=== PATIENT | male | born 2000 ===

== ENCOUNTER 2023-04-25 14:27 | Outpatient (AMB) | payer OTHER, SELFPAY ==
--- NOTE | 2023-04-25 14:46 | MHC.OFFWIV ---
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 HE also reports jhonathan ear pain and hard of hearing on both ears. Symptoms started yesterday night. PFSH Social History Patient Tobacco Use Status: Never used Tobacco Review of Systems Const All systems reviewed & are unremarkable except as noted in HPI and below Physical Exam Vital Signs: Last Vital Signs Temp 98.0 F 04/25/23 14:51 Pulse 66 04/25/23 14:51 BP 116/78 04/25/23 14:51 Pulse Ox 98 04/25/23 14:51 Oxygen Delivery Method Room Air 04/25/23 14:51 BMI result Body Mass Index 30.7 HEENT Head: Yes normocephalic Ears: external ears normal and unable to visualize TM (cerumen impaction ) bilaterally General nose exam: Normal nasal mucous membranes and turbinates present Mouth: oropharynx normal Throat: Yes uvula midline Office Procedures Cerumen Removal From which ear canal was the cerumen removed: bilateral Removal: irrigation Notes: patient tolerated procedure well [id number] Irrigation/Lavage Assessment & Plan Assessment & Plan (1) Dizziness: Code(s): R42 - Dizziness and giddiness Plan: - Meclizine for dizziness - Debrox for 7 days. - change positions slowly. (2) Cerumen impaction: Code(s): H61.20 - Impacted cerumen, unspecified ear Qualifiers: Laterality: bilateral Qualified Code(s): H61.23 - Impacted cerumen, bilateral Plan: - Meclizine for dizziness - Debrox for 7 days. - Unable to clear cerumen Plan - Meclizine for dizziness - Debrox for 7 days. Medications: New meclizine 50 mg PO DAILY 20 tabs 0RF dizziness R42 - Dizziness and giddiness carbamide peroxide 6.5% (Debrox) 5 drps otic (ears) BID 15 mL 0RF H61.23 - Impacted cerumen, bilateral Coding Level of Care Code Est Pt Level 3 (68683) Diagnoses Dizziness R42 Bilateral impacted cerumen H61.23 Laterality: bilateral CPT Codes Office Procedure - CPT: 39146-Ahv Irrigation/Lavage ([id number]) Time Spent (min) 15
[2023-04-25 14:51] VITALS: BP 116/78; PULSE 66; TEMP 36.7; O2SAT 98; BMI 30.7
== END 2023-04-25 15:57 | disposition home or self-care (01) ==
PROVIDERS: Visit Provider Nurse Practitioner Family
DX: R42 Dizziness and giddiness (principal); H61.23 Impacted cerumen, bilateral
CPT/HCPCS: 69209; 99213

== ENCOUNTER 2023-05-02 11:51 | Outpatient (AMB) | payer OTHER, SELFPAY ==
--- NOTE | 2023-05-02 12:32 | MHC.PC.OV ---
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 Intake Note: Pt is here to est care Allergies No Known Allergies Allergy (Verified 05/02/23 12:45) Medication List - Last Reconciled 05/02/23 by GIOVANNA Aguilar carbamide peroxide 6.5% (Debrox) 5 drps otic (ears) BID meclizine 50 mg PO DAILY Tobacco use date assessed: 05/02/23 Dental Screening Dental Screen Date: 05/02/23 Did you have a dental visit in the last 12 months?: No Did you have a dental problem in the last 6 months where you did not have access to dental care?: No Was dental information given to patient?: No HPI HPI Comments History of Present Illness Details The patient is a 22-year-old male here to establish care and have his annual physical exam. He was seen in our walk-in clinic 7 days ago for dizziness and difficulty hearing. He had cerumen removed from both ears, cut was given meclizine for the dizziness. 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 Patient is declining the influenza booster today. [facility] Medical History ADHD Family History Brother Substance use disorder Father Substance use disorder Mother Diabetes type 2, controlled Social History Housing: Apartment Patient Tobacco Use Status: Never used Tobacco e-Cigarette/Vaping Use: Never Used Second Hand Smoke Exposure: No service: No Current occupational status: employed Current occupation: [employer] Current occupational exposures/hazards: Yes Cognitive needs: No Hearing needs: No Vision needs: No Questionnaire PHQ-9 Over the last 2 weeks, how often have you been bothered by any of the following problems? 1. Little interest or pleasure in doing things: nearly every day 2. Feeling down, depressed, or hopeless: not at all 3. Trouble falling or staying asleep, or sleeping too much: not at all 4. Feeling tired or having little energy: not at all 5. Poor appetite or overeating: not at all 6. Feeling bad about yourself - or that you are a failure or have let yourself or your family down: not at all 7. Trouble concentrating on things, such as reading the newspaper or watching television: not at all 8. Moving or speaking so slowly that other people could have noticed. Or the opposite - being so fidgety or restless that you have been moving around a lot more than usual: not at all 9. Thoughts that you would be better off or of hurting yourself in some way: not at all Total score: 3 Source: Developed by Drs. Guicho Lucai, Fern Hassan, Dennys Boykin and colleagues, with an educational milady from [employer]. Thrive Questionnaire Date Thrive assessed: 05/02/23 I am a: Patient What is your living situation today?: I have a steady place to live Within the past 12 months, did the food you bought not last and you didn't have the money to get more?: Never true Within the past 12 months, did you worry whether your food would run out before you got money to buy more?: Never true Do you have trouble paying for medicines?: No Do you have trouble getting transportation to medical appointments?: No Do you have trouble paying your heating and electricity bill?: No Do you have trouble taking care of your child, family member or friend?: No Do you have trouble with day-to-day activities such as bathing, preparing meals, shopping, managing finances, etc.?: No Are you currently unemployed and looking for a job?: No Are you interested in more education?: No THRIVE Score: 0 AUDIT C Alcohol Use Questionnaire (AUDIT-C) 1. How often do you have a drink containing alcohol?: Monthly or less 2. How many drinks containing alcohol do you have on a typical day when you are drinking?: 1 or 2 3. How often do you have six or more drinks on one occasion?: Never Total Score: 1 BERLIN-7 AMB Questionnaire BERLIN-7 Date BERLIN - 7 assessed: 05/02/23 Feeling nervous, anxious, or on edge: 0 = Not at all Not being able to stop or control worryin = Not at all Worrying too much about different things: 0 = Not at all Trouble relaxin = Not at all Being so restless that it is hard to sit still: 0 = Not at all Becoming easily annoyed or irritable: 0 = Not at all Feeling afraid as if something awful might happen: 0 = Not at all Total BERLIN-7 score (0-4 normal; 5-9 mild; 10-14 moderate; 15-21 severe): 0 Source: Developed by Drs. Guicho Lucia, Fern Hassan, Dennys Boykin and colleagues, with an educational milady from [employer]. Review of Systems Const Details: Constitutional : No Weight loss, No Fever, No Chills, No Fatigue, No Malaise ENT/Mouth : No sore throat, No Rhinorrhea, Admits diminished hearing bilaterally. Eyes: No Eye Pain, No Swelling, No Redness Cardiovascular : No Chest Pain, No SOB, No Dyspnea on Exertion, No Orthopnea, No Edema, No Palpitations Respiratory : No Cough, No Sputum, No Wheezing Gastrointestinal : No Nausea, No Vomiting, No Diarrhea, No Constipation, No abdominal Pain, No Hematochezia, No Melena Genitourinary : No Dysuria, No Urinary Frequency, No Hematuria, Musculoskeletal : Admits intermittent mid and low back pain. Skin : No Skin Lesions, No rash Neuro : No Weakness, No Numbness, No Dizziness, No Headache Psych : No Anxiety/Panic, No Depression Heme/Lymph: No Bruising, No Bleeding,No Lymphadenopathy Endocrine : No Polyuria, No Polydipsia All other systems reviewed and are negative Physical exam (Primary Care) Vital Signs: Last Vital Signs Pulse 78 05/02/23 12:33 BP 100/72 05/02/23 12:33 Pulse Ox 100 05/02/23 12:33 Oxygen Delivery Method Room Air 05/02/23 12:33 BMI result Body Mass Index 30.4 Tobacco/Smoking Status: Tobacco use Status Tobacco use date assessed 05/02/23 05/02/23 12:40 Patient Tobacco Use Status Never used Tobacco 05/02/23 12:32 e-Cigarette/Vaping Use Never Used 05/02/23 12:40 PHQ-9: PHQ-9 Score PHQ-9: Total score 3 05/02/23 13:24 Thrive Assessment: Date of Thrive Assessment Date Thrive assessed 05/02/23 05/02/23 13:23 Const Other: Appearance: Alert.? Oriented X3.? No acute distress.? Head: Normocephalic, atraumatic, no step-offs or deformities Eyes: Pupils equal, round and reactive to light.? ENT: Pharynx normal.?Septum Midline. Impacted cerumen bilaterally. Not able to visualize TM. Neck: Normal inspection.? Neck supple.? CVS: Normal heart rate and rhythm.? Pulses normal.? Respiratory: No respiratory distress.? Breath sounds normal.? Abdomen: Soft and nontender.? Skin: Skin warm and dry.? Normal skin color.? Normal skin turgor.? Extremities: No lower extremity edema.? No calf ttp. 5/5 strength to bilateral upper and lower extremities Back: No midline tenderness, no C-spine tenderness, full range of motion, no CVA tenderness bilaterally. Some paraspinal muscle tenderness. Neuro: Oriented X 3.? No motor deficit.? No sensory deficit. CN 2-12 intact After cerumen removal. TMs intact, pearly spangler. Still large amount of hardened cerumen in ear canal. Office Procedures Cerumen Removal From which ear canal was the cerumen removed: bilateral Removal: irrigation Notes: patient tolerated procedure well [id number] Irrigation/Lavage Assessment and Plan Assessment & Plan (1) Impacted cerumen: Comment: Patient has been using Debrox drops for the past 5 days, will have ear lavage in office today. Code(s): H61.20 - Impacted cerumen, unspecified ear Qualifiers: Laterality: bilateral Qualified Code(s): H61.23 - Impacted cerumen, bilateral (2) Low back pain: Comment: Will order an x-ray. Will refer to physical therapy if indicated. patient states he understands plan Code(s): M54.50 - Low back pain, unspecified Qualifiers: Back pain laterality: unspecified Chronicity: acute Sciatica presence: without sciatica Qualified Code(s): M54.50 - Low back pain, unspecified Plan: Will follow up with X-ray results. (3) Encounter for routine adult physical exam with abnormal findings: Comment: Will draw labs. Code(s): Z00.01 - Encounter for general adult medical examination with abnormal findings Plan Next physical will be in 1 year. Orders: Orders Vitamin D 25-OH (D2 and D3) Today Z13.21 - Encounter for screening for nutritional disorder Vitamin B6 Today Z13.21 - Encounter for screening for nutritional disorder UA CC w/rflx Micro + Cult Today Z91.89 - Other specified personal risk factors, not elsewhere classified TSH reflex Free T4 Today Z13.29 - Encounter for screening for other suspected endocrine disorder Lipid Panel Today Z13.220 - Encounter for screening for lipoid disorders Complete Blood Count Auto Diff Today Z13.0 - Encounter for screening for diseases of the blood and blood-forming organs and certain disorders involving the immune mechanism Comprehensive Met. Panel Today Z91.89 - Other specified personal risk factors, not elsewhere classified XR lumbar spine 2-3V Today M54.50 - Low back pain, unspecified Vitamin B12 Today Z13.21 - Encounter for screening for nutritional disorder Review Flu Vaccine not done: patient reason Coding Level of Care Code Est Pt Prev Care 18-39y(98144) Diagnoses Bilateral impacted cerumen H61.23 Laterality: bilateral Acute low back pain without sciatica, unspecified back pain laterality M54.50 Back pain laterality: unspecified Chronicity: acute Sciatica presence: without sciatica Encounter for routine adult physical exam with abnormal findings Z00.01 CPT Codes Office Procedure - CPT: [id number]-[id number] Irrigation/Lavage ([id number]) Time Spent (min) 40
[2023-05-02 12:33] VITALS: BP 100/72; PULSE 78; O2SAT 100; BMI 30.4
== END 2023-05-02 15:19 | disposition home or self-care (01) ==
PROVIDERS: Visit Provider Nurse Practitioner Primary Care
DX: H61.23 Impacted cerumen, bilateral (principal)
CPT/HCPCS: 69209; 99395

== ENCOUNTER 2023-05-03 10:11 | Outpatient (REF) | payer OTHER, SELFPAY ==
--- NOTE | ~2023-05-03 | XR_ITS ---
EXAMINATION: XR LUMBOSACRAL SPINE CLINICAL INFORMATION: Low back pain COMPARISON: None available. TECHNIQUE: Three views of the lumbosacral spine. FINDINGS: No acute visible fracture or dislocation. Vertebral body heights and disc spaces are maintained. Posterior elements are intact. Paraspinal soft tissues are unremarkable. Visualized bowel gas is unremarkable. XR/XR lumbar spine 2-3V IMPRESSION: No acute visible fracture or dislocation.
[2023-05-03 13:22] LABS: MANUAL DIFF FLAG NO
[2023-05-03 13:23] LABS: Appearance Urine Clear; Color Urine Yellow; Glucose Urine UA Negative (Negative); Leukocyte Esterase Urine Negative (Negative); Nitrite Urine Negative (Negative); PH 6.5 (5.0-9.0); Specific Gravity - Urine 1.025 (1.005-1.025); Urine Blood Negative (Negative); Urine Ketones Negative (Negative); Urine Protein Negative (Neg-Trace)
[2023-05-03 13:31] LABS: Basophils Percent Auto 0.6 % (0-2); Eosinophils Absolute Auto 0.1 X10*3/uL (0.0-0.4); Eosinophils Percent Auto 2.1 % (0-4); Hematocrit 46.9 % (42.0-52.0); Imm Gran Abs Auto 0.04 X10*3/uL (0.00-0.03); Imm Gran Pct Auto 0.6 % (0.0-0.4); Lymphocytes Absolute Auto 2.4 X10*3/uL (1.2-4.9); Lymphocytes Percent Auto 35.7 % (20-40); Mean Corpuscular HGB Conc 34.1 g/dl (31.0-36.0); Mean Corpuscular Hemoglobin 28.8 pg (27.0-33.0); Mean Corpuscular Volume 84.5 fL (80.0-98.0); Mean Platelet Volume 10.3 fL (9.4-12.4); Monocytes Absolute Auto 0.4 X10*3/uL (0.1-1.2); Monocytes Percent Auto 5.4 % (2-11); Neutrophils Absolute Auto 3.7 x10*3/uL (2.0-8.3); Neutrophils Percent Auto 55.6 % (45-73); Platelet Count 276 X10*3/uL (160-400); Red Blood Count 5.55 X10*6/uL (4.60-5.80); White Blood Count 6.6 X10*3/uL (4.8-10.8)
[2023-05-03 14:12] LABS: Alanine Aminotransferase 25 U/L (0-40); Albumin Level 4.6 g/dL (3.5-5.0); Alkaline Phosphatase 78 U/L (39-117); Anion Gap 14 (12-20); Aspartate Amino Transferase 22 U/L (5-37); Bilirubin Total 0.7 mg/dL (0.0-1.0); Blood Urea Nitrogen 13 mg/dL (9-16); Calcium 9.7 mg/dL (8.4-10.2); Carbon Dioxide 26 mmol/L (22-29); Chloride 103 mmol/L (96-108); Cholesterol 148 mg/dL (<200); Estimated Glomerular Filt Rate > 60; Glucose Random 108 mg/dL (60-115); HDL Cholesterol 24 mg/dL (>40); LDL Cholesterol Calculated 84 mg/dL (<100); Potassium 3.7 mmol/L (3.3-5.1); Sodium 139 mmol/L (135-145); Total Protein 7.8 g/dL (6.5-8.0); Triglycerides 204 mg/dL (<150)
[2023-05-03 14:15] LABS: TSH reflex Free T4 1.22 uIU/mL (0.32-4.0)
[2023-05-03 15:26] LABS: Vitamin B12 636 pg/mL (200-900)
[2023-05-08 14:58] LABS: Vitamin D 25-OH, D2 <4 ng/mL; Vitamin D 25-OH, D3 16 ng/mL; Vitamin D 25-OH, Total 16 ng/mL (30-100)
[2023-05-09 12:33] LABS: Vitamin B6 40.4 ng/mL (2.1-21.7)
== END 2023-05-03 10:12 | disposition home or self-care (01) ==
LOC: HO.HMGCX 10:11
PROVIDERS: PCP Nurse Practitioner Primary Care; Visit Provider Nurse Practitioner Primary Care
DX: M54.50 Low back pain, unspecified (principal); Z91.89 Other specified personal risk factors, not elsewhere classified; Z13.29 Encounter for screening for other suspected endocrine disorder; Z13.21 Encounter for screening for nutritional disorder; Z13.220 Encounter for screening for lipoid disorders; Z13.0 Encounter for screening for diseases of the blood and blood-forming organs and certain disorders involving the immune mechanism
CPT/HCPCS: 36415; 72100; 80053; 80061; 81003; 82306; 82607; 84207; 84443; 85025